=== PATIENT | female | born 1980 | race Caucasian/White ===

== ENCOUNTER 2017-12-15 19:00 | Emergency (ER) | payer BC, OTHER | END 2017-12-15 19:36 | disposition home or self-care (01) | LOC: BURERS 19:00 | DX: H65.93 Unspecified nonsuppurative otitis media, bilateral (principal); J06.9 Acute upper respiratory infection, unspecified; F41.9 Anxiety disorder, unspecified | CPT/HCPCS: 99283 ==

== ENCOUNTER 2018-10-04 22:15 | Emergency (ER) | payer OTHER, SELFPAY ==
[2018-10-04] MEDS ORDERED: Ibuprofen 800 MG TAB ONE (23:16)
--- NOTE | 2018-10-05 07:07 | CT ---
CT LEFT LOWER EXTREMITY WITHOUT IV CONTRAST: Date: 10/04/18 INDICATION: History of fall with left leg pain. COMPARISON: Radiographs of foreleg and femur dated 10/04/18. FINDINGS: No acute fracture or subluxation is seen involving the left foreleg. There is mild to moderate osteoa rthrosis of the visualized left knee. The visualized tibiotalar joint and talar dome appear within no rmal limits. There is mild soft tissue swelling involving the anterior aspect of the left foreleg whi ch may reflect a tiny contusion. IMPRESSION: 1. No acute fracture or subluxation of the left foreleg. 2. Mild to moderate osteoarthrosis of the left knee. POS: OFF
--- NOTE | 2018-10-05 08:25 | RAD ---
LEFT FEMUR: DATE: 10/04/2018. FINDINGS: No fracture was evident. All bones appeared intact. A bony density see over the superior part of th e left acetabulum is probably not acute. There are surgical clips in the region that could be associ ated. The little irregularity seen on the lateral view near the femoral condyles posteriorly is prob ably not related to current trauma. IMPRESSION: No femoral fracture is seen. POS: HOME
--- NOTE | 2018-10-05 08:27 | RAD ---
LEFT LEG 2 VIEWS: DATE: 10/04/2018. FINDINGS: No fracture was appreciated. The tibia and fibula both appeared intact. Again noted was a little ir regularity in the distal femur near the condyles on the lateral view. In the absence of a knee joint effusion and the overall appearance, it is not suggestive of an acute injury. IMPRESSION: No acute findings. POS: HOME
== END 2018-10-05 00:26 | disposition home or self-care (01) ==
LOC: BURERS 22:15
DX: S83.92XA Sprain of unspecified site of left knee, initial encounter (principal); S76.012A Strain of muscle, fascia and tendon of left hip, initial encounter; F41.9 Anxiety disorder, unspecified; W10.9XXA Fall (on) (from) unspecified stairs and steps, initial encounter